=== PATIENT | male | born 1955 | race Caucasian/White ===

== ENCOUNTER → 2017-12-28 | Outpatient (CLI) | payer OTHER ==
[~2017-12-28] MED LIST: CEFTIN500 MG PO; LOSARTAN POTASS50 MG PO; NORCO 10-325 T1 EACH PO; PANTOPRAZOLE SO40 MG PO; Z.0.ASPIRIN325 MG PO; Z.0.EFFIENT10 MG PO; Z.0.METOPROLOL TART2 PO; Z.0.SIMVASTATIN40 MG PO
--- NOTE | 2017-12-28 16:10 | Diagnostic Imaging Report ---
PROCEDURE: CT CHEST WITHOUT CONTRAST CT scan of the chest WITHOUT intravenous contrast, using standard protocol. TECHNIQUE: The chest was scanned utilizing a multidetector helical scanner from the apex to the level of the adrenal glands. No IV contrast was administered as per physician request. Coronal and sagittal multiplanar reformations were obtained. COMPARISON: None. INDICATIONS: PLEURAL EFFUSIONS. SHORTNESS OF BREATH FINDINGS: Lines/tubes: None. Lungs and Airways: There is near complete atelectasis of the left lung. Minimal aeration of the left upper lobe remains. No focal endobronchial lesion is identified. The right lung is clear. Emphysematous changes are present in the right lung.. Pleura: Large left pleural effusion. No pneumothorax. Heart and mediastinum: The thyroid gland is normal. No significant mediastinal, hilar or axillary lymphadenopathy is seen. The heart and pericardium are within normal limits. Atherosclerotic calcifications of the thoracic aorta and coronary arteries. Soft tissues: Normal. Abdomen: Limited views of the upper abdomen show no abnormality within the visualized liver, spleen, pancreas, or kidneys. The right adrenal gland is normal. Incomplete visualization of the left adrenal gland. Bones: The visualized bony thorax is within normal limits. IMPRESSION: Large left pleural effusion, with near complete atelectasis of the left lung. Repeat evaluation of the chest after thoracentesis may provide additional information to exclude underlying pathology. Attention to the left adrenal gland on followup imaging. The findings were discussed with Dr. Linares at 1605 hrs. on 12/28/2017 Dictated by: Lazaro Sanchez M.D. on 12/28/2017 at 16:11 Electronically approved by: Lazaro Sanchez M.D. on 12/28/2017 at 16:11
== END ==
LOC: CT 15:24
PROVIDERS: ATTEND Family Medicine
DX: R06.02 Shortness of breath (principal); J90 Pleural effusion, not elsewhere classified
CPT/HCPCS: 71250